=== PATIENT | male | born 1935 | race Caucasian/White ===

== ENCOUNTER 2024-04-09 10:23 | Inpatient (IN) | payer OTHER ==
[~2024-04-09] VITALS: Ht 170.2 cm; Wt 72.5 kg
[~2024-04-09 10:23] MED LIST: ONDA-144; TAMS0.4C36 PO; TRAM50TA2
[2024-04-09 11:02] LABS: Basophils # (auto) 0 10 ^3/uL (0-0.2); Basophils % (auto) 0.3 % (0.0-2.0); Eosinophils # (auto) 0 10 ^3/uL (0-0.8); Eosinophils % (auto) 0.1 % (0.0-7.0); Hematocrit 39.2 % (41.0-53.0); Hemoglobin 12.9 g/dL (13.5-17.5); Lymphocytes # (auto) 1.8 10 ^3/uL (0.4-5.4); Lymphocytes % (auto) 13.9 % (10.0-50.0); Mean Corpuscular Hgb Conc. 32.9 g/dL (32.0-36.0); Mean Corpuscular Volume 94.1 fL (80.0-100.0); Monocytes # (auto) 1.4 10 ^3/uL (0-1.3); Monocytes % (auto) 10.6 % (0.0-12.0); Neutrophils # (auto) 9.8 10 ^3/uL (1.6-8.6); Neutrophils % (auto) 75.1 % (37.0-80.0); Red Blood Cells 4.16 10^6/uL (4.5-5.90); Red Cell Distribution Width 12.9 % (11.8-14.3); White Blood Cell 13.1 10^3/uL (4.4-10.8)
[2024-04-09 11:14] LABS: Alanine Aminotransferase 12 U/L (7-40); Albumin 4.1 g/dL (3.2-4.8); Alkaline Phosphatase 98 U/L (46-116); Anion Gap 10 (5-15); Aspartate Aminotransferase 19 U/L (13-40); BUN/Creatinine Ratio 10.9 (10.0-20.0); Bilirubin, Total 1.7 mg/dL (0.2-1.0); Blood Urea Nitrogen 12 mg/dL (9-23); Carbon Dioxide 24 mmol/L (20-30); Chloride 104 mmol/L (98-107); Glucose 201 mg/dL (74-106); Sodium 138 mmol/L (136-145); Total Protein 6.7 g/dL (5.7-8.2)
[2024-04-09 11:18] LABS: INR 1.05 (0.9-1.15); Prothrombin Time 11.1 sec (9.3-11.8)
[2024-04-09] MEDS: traMADol HCL 50 MG TAB PO ONE ×2 (11:31→14:32)
[2024-04-09 12:23] LABS: Base Excess -0.9 mmol/L (-2.0-2.0)
[2024-04-09] MEDS: ASPirin-EC 325mg tab PO ONE (12:38)
[2024-04-09] MEDS: ENOXAPARIN SOD 80 MG/0.8ML SYRINGE SC ONE (12:38)
[2024-04-09 13:23] VITALS: RESP 20; O2SAT 96
[2024-04-09 14:08] LABS: COVID19 ANTIGEN SOFIA FIA NEGATIVE (NEGATIVE)
[2024-04-09] MEDS ORDERED: ONDANSETRON HCL 4 MG/2 ML VIAL IV PRN (17:30)
[2024-04-09] MEDS ORDERED: NITROGLYCERIN 0.4 MG SL TAB SL PRN (17:30)
[2024-04-09] MEDS ORDERED: DEXTROSE (50%) 50ML SYRG IV PRN (17:30)
[2024-04-09] MEDS: HYDROcodone-ACET 5/325MG TAB PO ONE (17:59)
[2024-04-09] MEDS: levoFLOXacin 500MG 100 ML IV ONE (17:59)
[2024-04-09] MEDS: PANTOPRAZOLE 40 MG/10 ML VIAL INJ IV ONE (17:59)
[2024-04-09] MEDS: IOHEXOL 350 MG/ML 100ML IJ ONE (18:26)
[2024-04-09 18:42] LABS: Magnesium 1.7 mg/dL (1.6-2.6)
[2024-04-09 18:50] LABS: INR 1.09 (0.9-1.15); Prothrombin Time 11.5 sec (9.3-11.8)
[2024-04-09 19:47] VITALS: PULSE 65; RESP 23; O2SAT 94
[2024-04-09] MEDS: SODIUM CHLORIDE 0.9% 500 ML IV ONE (21:16)
[2024-04-09] MEDS: ACCU-CHEK COMFORT CURVE STRIP VI SCH (21:30)
[2024-04-09] MEDS: ATORVASTATIN 20 MG TAB PO SCH (21:35)
[2024-04-09] MEDS: ENOXAPARIN SOD 80 MG/0.8ML SYRINGE SC SCH (21:36)
[2024-04-09] MEDS: InsuLIN REG 1unit/0.01ml Soln (100units/ml) SC SCH (21:36)
[2024-04-09] MEDS: SODIUM CHLORIDE 0.9% 1,000 ML IV SCH (22:29)
[2024-04-10] MEDS: SODIUM CHLORIDE 0.9% 500 ML IV ONE (01:23)
[2024-04-10 05:01] LABS: Basophils # (auto) 0.2 10 ^3/uL (0-0.2); Basophils % (auto) 1.2 % (0.0-2.0); Eosinophils # (auto) 0.1 10 ^3/uL (0-0.8); Eosinophils % (auto) 0.4 % (0.0-7.0); Hemoglobin 11.2 g/dL (13.5-17.5); Lymphocytes # (auto) 1.8 10 ^3/uL (0.4-5.4); Lymphocytes % (auto) 13.5 % (10.0-50.0); Mean Corpuscular Hemoglobin 30.9 pg (28.0-32.0); Mean Corpuscular Volume 93.7 fL (80.0-100.0); Monocytes # (auto) 1.7 10 ^3/uL (0-1.3); Monocytes % (auto) 12.9 % (0.0-12.0); Neutrophils # (auto) 9.6 10 ^3/uL (1.6-8.6); Nucleated Red Blood Cells % 0.1 %; Red Blood Cells 3.63 10^6/uL (4.5-5.90); White Blood Cell 13.3 10^3/uL (4.4-10.8)
[2024-04-10] MEDS: HYDROcodone-ACET 5/325MG TAB PO PRN (05:11)
[2024-04-10 05:16] LABS: Alanine Aminotransferase 14 U/L (7-40); Albumin 3.5 g/dL (3.2-4.8); Alkaline Phosphatase 79 U/L (46-116); Anion Gap 6 (5-15); Aspartate Aminotransferase 23 U/L (13-40); BUN/Creatinine Ratio 13.4 (10.0-20.0); Blood Urea Nitrogen 13 mg/dL (9-23); Calcium 8.1 mg/dL (8.7-10.4); Carbon Dioxide 25 mmol/L (20-30); Chloride 104 mmol/L (98-107); Glucose 116 mg/dL (74-106); Potassium 4.1 mmol/L (3.5-5.1); Sodium 135 mmol/L (136-145)
[2024-04-10 05:17] LABS: Bilirubin, Total 1.6 mg/dL (0.2-1.0); Total Protein 5.9 g/dL (5.7-8.2)
[2024-04-10 05:27] LABS: Triglycerides 58 mg/dL (< 150)
[2024-04-10 05:28] LABS: LDL Cholesterol 41 mg/dL (< 100)
[2024-04-10 05:29] LABS: Cholesterol 114 mg/dL (< 200); HDL Cholesterol 53 mg/dL (40-59)
[2024-04-10 06:37] LABS: Urine Bacteria None Seen /hpf (None Seen)
[2024-04-10 06:54] LABS: Urine Blood TRACE /uL (Negative); Urine Clarity Clear (Clear); Urine Color Yellow (Yellow); Urine Mucus FEW (None Seen); Urine Protein, UAD 1+ (Negative); Urine Urobilinogen 3 mg/dL (Negative); Urine WBC 1 /hpf (0 - 3)
[2024-04-10 07:27] VITALS: PULSE 58; RESP 25; O2SAT 96
[2024-04-10] MEDS: PANTOPRAZOLE 40 MG/10 ML VIAL INJ IV SCH (09:47)
[2024-04-10] MEDS: DOCUSATE SOD 100 MG CAP PO SCH (09:48)
[2024-04-10] MEDS: ASPirin 81 mg TAB PO SCH (09:48)
[2024-04-10 15:35] VITALS: BP 122/57; PULSE 65; RESP 18; TEMP 98.7; O2SAT 93
[2024-04-10] MEDS: HYDROcodone-ACET 10/325MG TAB PO PRN (16:13)
[2024-04-10 17:00] VITALS: BP 133/63; PULSE 68; RESP 18; TEMP 100.4; O2SAT 95
[2024-04-10] MEDS: levoFLOXacin 500MG 100 ML IV SCH (17:33)
[2024-04-10] MEDS ORDERED: MULT-1018 PO (17:38)
[2024-04-10] MEDS ORDERED: METF-370 PO (17:38)
[2024-04-10] MEDS ORDERED: ATOR10TA52 PO (17:38)
[2024-04-10 20:00] VITALS: BP 106/48; PULSE 66; PULSE 70; PULSE 81; RESP 18; TEMP 97.6; O2SAT 95
[2024-04-10 21:00] VITALS: BP 106/48; PULSE 66; RESP 17; TEMP 97.7; O2SAT 95
[2024-04-10] MEDS ORDERED: hydrALAZINE HCL 20 MG/ML VL IV ONE (21:00)
[2024-04-10] MEDS ORDERED: HALOPERIDOL LACTATE 5 MG/ML INJ VIAL IM ONE (22:00)
[2024-04-11] VITALS (7 sets, daily range): BP systolic 98–111; BP diastolic 44–75; PULSE 51–70; RESP 16–18; TEMP 98.2–99.6; O2SAT 95–99
[2024-04-11] MEDS ORDERED: ATOR-507 PO (12:28)
[2024-04-12 08:00] VITALS: BP 120/43; PULSE 54; PULSE 55; RESP 18; TEMP 99.3; O2SAT 95
[2024-04-12 09:00] VITALS: BP 120/45; PULSE 54; RESP 18; TEMP 99.3; O2SAT 95
[2024-04-12] MEDS ORDERED: HYDROcodone-ACET 5/325MG TAB PO PRN (10:30)
[2024-04-12 11:47] LABS: Basophils # (auto) 0 10 ^3/uL (0-0.2); Basophils % (auto) 0.1 % (0.0-2.0); Eosinophils # (auto) 0.1 10 ^3/uL (0-0.8); Hematocrit 32.8 % (41.0-53.0); Hemoglobin 10.9 g/dL (13.5-17.5); Lymphocytes # (auto) 1.4 10 ^3/uL (0.4-5.4); Lymphocytes % (auto) 12.5 % (10.0-50.0); Mean Corpuscular Hgb Conc. 33.2 g/dL (32.0-36.0); Mean Corpuscular Volume 93.3 fL (80.0-100.0); Monocytes # (auto) 1.1 10 ^3/uL (0-1.3); Monocytes % (auto) 9.8 % (0.0-12.0); Neutrophils # (auto) 8.4 10 ^3/uL (1.6-8.6); Neutrophils % (auto) 76.6 % (37.0-80.0); Nucleated Red Blood Cells % 0.1 %; Red Blood Cells 3.52 10^6/uL (4.5-5.90); Red Cell Distribution Width 12.9 % (11.8-14.3)
[2024-04-12 12:07] LABS: Alanine Aminotransferase 18 U/L (7-40); Albumin 3.2 g/dL (3.2-4.8); Alkaline Phosphatase 84 U/L (46-116); Anion Gap 6 (5-15); Aspartate Aminotransferase 43 U/L (13-40); BUN/Creatinine Ratio 18.5 (10.0-20.0); Blood Urea Nitrogen 15 mg/dL (9-23); Calcium 8.2 mg/dL (8.7-10.4); Carbon Dioxide 23 mmol/L (20-30); Chloride 107 mmol/L (98-107); Glucose 147 mg/dL (74-106); Potassium 3.6 mmol/L (3.5-5.1); Sodium 136 mmol/L (136-145)
[2024-04-12 12:08] LABS: Bilirubin, Total 0.8 mg/dL (0.2-1.0); Total Protein 5.7 g/dL (5.7-8.2)
[2024-04-12 13:00] VITALS: BP 112/51; PULSE 62; RESP 18; TEMP 98.6; O2SAT 95
[2024-04-12 20:00] VITALS: PULSE 79; PULSE 86; RESP 18; O2SAT 95
[2024-04-12] MEDS: LORazepam 2MG/ML-1ML VIAL IV ONE (20:00)
[2024-04-12 21:00] VITALS: BP 119/50; PULSE 74; RESP 18; TEMP 98.2; O2SAT 96
[2024-04-13] VITALS (7 sets, daily range): BP systolic 105–123; BP diastolic 45–59; PULSE 50–79; RESP 16–20; TEMP 97.9–98.2; O2SAT 94–99
[2024-04-13 09:43] LABS: Base Excess -1.4 mmol/L (-2.0-2.0)
[2024-04-13 11:32] LABS: Basophils # (auto) 0 10 ^3/uL (0-0.2); Basophils % (auto) 0.3 % (0.0-2.0); Eosinophils # (auto) 0.1 10 ^3/uL (0-0.8); Eosinophils % (auto) 1.5 % (0.0-7.0); Hematocrit 30.3 % (41.0-53.0); Hemoglobin 10.4 g/dL (13.5-17.5); Lymphocytes # (auto) 1.2 10 ^3/uL (0.4-5.4); Lymphocytes % (auto) 14.8 % (10.0-50.0); Mean Corpuscular Hemoglobin 31.8 pg (28.0-32.0); Mean Corpuscular Hgb Conc. 34.1 g/dL (32.0-36.0); Mean Corpuscular Volume 93.2 fL (80.0-100.0); Monocytes # (auto) 1.1 10 ^3/uL (0-1.3); Monocytes % (auto) 12.7 % (0.0-12.0); Neutrophils # (auto) 5.9 10 ^3/uL (1.6-8.6); Neutrophils % (auto) 70.7 % (37.0-80.0); Red Blood Cells 3.26 10^6/uL (4.5-5.90); Red Cell Distribution Width 12.6 % (11.8-14.3); White Blood Cell 8.4 10^3/uL (4.4-10.8)
[2024-04-13 11:37] LABS: Chloride 107 mmol/L (98-107); Potassium 3.4 mmol/L (3.5-5.1); Sodium 138 mmol/L (136-145)
[2024-04-13 11:38] LABS: Anion Gap 4 (5-15); Calcium 8.3 mg/dL (8.7-10.4); Carbon Dioxide 27 mmol/L (20-30)
[2024-04-13 11:43] LABS: BUN/Creatinine Ratio 12.5 (10.0-20.0); Blood Urea Nitrogen 10 mg/dL (9-23); Glucose 153 mg/dL (74-106)
== END 2024-04-13 22:43 | disposition short-term general hospital (02) | DRG 175 ==
LOC: ER 10:23 → TELE 17:30 → TELE-EAST 04-10 15:36 → TELE-WESTW 04-12 16:52
PROVIDERS: ADMIT Nurse Practitioner Family; ATTEND Internal Medicine
DX: I26.99 Other pulmonary embolism without acute cor pulmonale (principal); I21.A1 Myocardial infarction type 2; J96.01 Acute respiratory failure with hypoxia; D68.59 Other primary thrombophilia; F03.90 Unspecified dementia, unspecified severity, without behavioral disturbance, psychotic disturbance, mood disturbance, and anxiety; D72.829 Elevated white blood cell count, unspecified; E78.5 Hyperlipidemia, unspecified; K21.9 Gastro-esophageal reflux disease without esophagitis; M54.50 Low back pain, unspecified; N40.0 Benign prostatic hyperplasia without lower urinary tract symptoms; Z20.822 Contact with and (suspected) exposure to COVID-19; Z88.6 Allergy status to analgesic agent; Z88.5 Allergy status to narcotic agent; Z87.442 Personal history of urinary calculi; Z85.820 Personal history of malignant melanoma of skin; Z86.711 Personal history of pulmonary embolism; E11.65 Type 2 diabetes mellitus with hyperglycemia
CPT/HCPCS: 36415; 36600; 70450; 71045; 71260; 74177; 80048; 80053; 80061; 81001; 82805; 82962; 83036; 83605; 83690; 83735; 83880; 84484; 85025; 85610; 87040; 87426; 93005; 93306; 96365; 96372; 96375; 99291; C9113; G0378; J1815; J1956; J2405